=== PATIENT | female | born 1950 | race Caucasian/White ===

== ENCOUNTER 2019-01-09 04:47 | Inpatient (IN) ==
[2019-01-02 12:48] LABS: Appearance,Urine CLEAR; Bacteria,Urine 0 /hpf (0); Bilirubin,Urine NEG (NEG); Color,Urine YELLOW; Glucose,Urine (UA) NEGATIVE (NEG); Leukocyte Esterase,Urine 500 /uL (NEG); Mucus,Urine MANY /hpf (0); Protein,Urine NEG (NEG); Specific Gravity,Urine 1.021 (1.000-1.035); Urine Blood NEG mg/dL (<0.03); Urine Hyaline Cast 1 /lpf (0-2); Urine RBC 2 /hpf (0-1); Urine Squamous Epithelial Cell 2 /hpf (0-4); Urine WBC 39 /hpf (0-4); Urobilinogen,Urine NEG (NEG)
[2019-01-02 13:19] LABS: Basophils # (Auto) 0 K/mcL (0.0-0.3); Basophils % (Auto) 0.3 % (0.0-2.0); Eosinophils # (Auto) 0.1 K/mcL (0.0-0.7); Eosinophils % (Auto) 2.4 % (0.0-7.0); Granulocytes % (Auto) 69.5 % (38.0-78.0); Lymphocytes # (Auto) 1.3 K/mcL (1.5-4.8); Lymphocytes % (Auto) 22.2 % (15.5-49.0); Mean Cell Volume 91.1 fL (80.0-100.0); Mean Corpuscular HGB Conc 32.9 g/dL (31.0-36.0); Monocytes # (Auto) 0.3 K/mcL (0.1-0.9); Monocytes % (Auto) 5.6 % (1.0-12.0); Platelet Count 255 K/mcL (140-440); RBC 3.97 M/mcL (4.00-5.20); Red Cell Distribution Width 13.3 % (11.5-14.5)
[2019-01-02 13:28] LABS: Blood Urea Nitrogen 13 mg/dl (8-23)
[2019-01-02 13:48] LABS: Estimated Average Glucose(eAG) 183 mg/dL
[2019-01-09] MEDS ORDERED: CELECOXIB 200 MG CAPSULE PO SCH (06:00)
[2019-01-09] MEDS ORDERED: oxyCODONE 10 MG TAB.ER.12H PO SCH (06:00)
[2019-01-09] MEDS ORDERED: PREGABALIN 75 MG CAPSULE PO SCH (06:00)
[2019-01-09 06:39] LABS: Appearance,Urine HAZY; Bacteria,Urine 0 /hpf (0); Bilirubin,Urine NEG (NEG); Color,Urine YELLOW; Glucose,Urine (UA) NEGATIVE (NEG); Leukocyte Esterase,Urine NEG /uL (NEG); Mucus,Urine MANY /hpf (0); Protein,Urine NEG (NEG); Specific Gravity,Urine 1.029 (1.000-1.035); Urine Amorphous Crystals FEW /hpf (0); Urine Blood 0.03 mg/dL (<0.03); Urine RBC 11 /hpf (0-1); Urine Squamous Epithelial Cell < 1 /hpf (0-4); Urine Transitional Epi Cells < 1 /hpf (0-2); Urine WBC 1 /hpf (0-4)
[2019-01-09] MEDS ORDERED: VANCOMYCIN 1,500 MG in 0.9 % SODIUM CHLORIDE 500 ML IV SCH (07:00)
[2019-01-09] MEDS ORDERED: PROPOFOL 200 MG/20 ML VIAL IV ONE (07:45)
[2019-01-09] MEDS ORDERED: LIDOCAINE HCL/PF 100 MG/5 ML SYRINGE IV ONE (07:45)
[2019-01-09] MEDS ORDERED: ePHEDrine 50 MG/ML AMPUL IV ONE (07:45)
[2019-01-09] MEDS ORDERED: ONDANSETRON 4 MG/2 ML VIAL IV ONE (07:45)
[2019-01-09] MEDS ORDERED: TRANEXAMIC ACID 1,000 MG/10 ML VIAL IV ONE ×2 (07:45→09:23)
[2019-01-09] MEDS ORDERED: SUCCINYLCHOLINE 20 MG/ML ML IV ONE (07:45)
[2019-01-09] MEDS ORDERED: MIDAZOLAM 5 MG/5 ML VIAL IV ONE (07:45)
[2019-01-09] MEDS ORDERED: DEXAMETHASONE 4 MG/ML VIAL IV ONE (07:45)
[2019-01-09] MEDS ORDERED: PHENYLEPHRINE 10 MG/ML VIAL IV ONE (07:45)
[2019-01-09] MEDS ORDERED: fentaNYL 100 MCG/2 ML VIAL IV ONE (07:45)
[2019-01-09] MEDS ORDERED: ESMOLOL 100 MG/10 ML VIAL IV ONE (07:45)
[2019-01-09] MEDS ORDERED: HEPARIN 5,000 UNIT/ML VIAL SQ ONE ×2 (08:47)
[2019-01-09] MEDS ORDERED: MAGNESIUM HYDROXIDE 30 ML ORAL.SUSP PO PRN (09:23)
[2019-01-09] MEDS ORDERED: FLEETS ADULT ENEMA PR PRN (09:23)
[2019-01-09] MEDS ORDERED: BISACODYL 10 MG SUPP.RECT PR PRN (09:23)
[2019-01-09] MEDS ORDERED: DEXTROSE 31 GM ORAL.SUSP PO PRN (09:23)
[2019-01-09] MEDS ORDERED: POLYETHYLENE GLYCOL 3350 17 GM PACKET PO PRN (09:23)
[2019-01-09] MEDS ORDERED: DEXTROSE 50% 50 ML VIAL IV PRN (09:23)
[2019-01-09] MEDS ORDERED: BENZOCAINE/MENTHOL 1 LOZENGE PO PRN (09:23)
--- NOTE | 2019-01-09 09:23 | Brief Operative Note ---
Date of procedure: 01/09/19 Pre-op diagnosis: R hip severe DJD Post-op diagnosis: same Procedure: Right anterior total hip arthroplasty Grafts/Implants: Yes (Depuy Actis 4 std, +5 36 delta head, 54 cup, neutral altrx liner) Anesthesia: spinal, GLMA Findings: severe arthritis Complications: none Surgeon: Gonzalo Diamond Gas Burner Operator: William Park Estimated blood loss (cc): 250 Specimens Removed/Pathology: none sent Condition: stable Disposition: PACU
[2019-01-09] MEDS ORDERED: LIDOCAINE PRILOCAINE TOPICAL PRN (09:28)
[2019-01-09] MEDS ORDERED: ceFAZolin 1 GM VIAL IV SCH (09:30)
[2019-01-09] MEDS ORDERED: ACETAMINOPHEN 120 MG SUPP.RECT PR ONE (09:47)
[2019-01-09] MEDS ORDERED: ONDANSETRON 4 MG/2 ML VIAL IV PRN (09:47)
[2019-01-09] MEDS ORDERED: NALOXONE HCL 0.4 MG/ML VIAL IV PRN (09:47)
[2019-01-09] MEDS ORDERED: diphenhydrAMINE 50 MG/ML VIAL IV PRN (09:47)
[2019-01-09] MEDS ORDERED: ATROPINE SULFATE 0.4 MG/ML VIAL IV PRN (09:47)
[2019-01-09] MEDS ORDERED: METHOCARBAMOL 1,000 MG/10 ML VIAL IV PRN (09:47)
[2019-01-09] MEDS ORDERED: MEPERIDINE 25 MG/ML SYRINGE IV PRN (09:47)
[2019-01-09] MEDS ORDERED: ePHEDrine 50 MG/ML AMPUL IV PRN (09:47)
[2019-01-09] MEDS ORDERED: HYDROmorphone 2 MG/ML VIAL IV PRN (09:47)
[2019-01-09] MEDS ORDERED: METOPROLOL TARTRATE 5 MG/5 ML VIAL IV PRN (09:47)
[2019-01-09] MEDS ORDERED: IPRATROPIUM/ALBUTEROL 3 ML AMPUL.NEB NEB PRN (09:47)
[2019-01-09] MEDS ORDERED: fentaNYL 100 MCG/2 ML VIAL IV PRN (09:47)
[2019-01-09] MEDS ORDERED: FLUMAZENIL 0.1 MG/ML ML IV PRN (09:47)
[2019-01-09] MEDS ORDERED: LACTATED RINGERS 1,000 ML IV SCH (10:00)
--- NOTE | 2019-01-09 10:09 | Operative Note ---
DATE OF OPERATION: 01/09/2019 PREOPERATIVE DIAGNOSIS: Right hip severe osteoarthritis. POSTOPERATIVE DIAGNOSIS: Right hip severe osteoarthritis. PROCEDURE PERFORMED: Right anterior total hip arthroplasty placing a DePuy Actis size 4 standard offset femoral stem; a +5, 36 mm delta ceramic head ball with a 54 Sayre cup and a neutral Altrx liner. SURGEON: Gonzalo Diamond M.D. JUNIOR LINUX SYSTEMS ADMINISTRATOR: Malik Park PA-C. ANESTHESIA: Spinal plus general. DRAINS: None. SPECIMENS: Femoral head which was discarded. BLOOD LOSS: 250 mL. COMPLICATIONS: None. POSTOPERATIVE CONDITION: Stable. INDICATIONS FOR SURGERY: This is a 68-year-old female who has had longstanding progressive worsening right hip pain. Radiographs showed severe ipts-ih-qvel osteoarthritis. FINDINGS AT SURGERY: Severe arthritis. Post implantation showed good component position with leg length and offset relatively equal. PROCEDURE IN DETAIL: The patient had been seen preoperatively. Informed consent had been obtained after discussion of risks and benefits of surgery. Risks including, but not limited to, bleeding, possibly requiring transfusion; infection, possibly requiring implant removal and prolonged IV antibiotics, this being increased with her diabetes and obesity; injury to nerves, blood vessels, other surrounding structures; anesthetic risks; incomplete or no resolution of symptoms; dislocation; fracture; DVT and pulmonary embolus risks; and the possibility of needing further revision joint surgery. She understood and wished to proceed. Correct operative site was marked. The patient was taken to the operating room after spinal anesthesia was given. She was then given LMA general and then transferred onto the fracture table, and the right hip and groin were carefully prepped and draped in normal sterile fashion. She did have some yeast under her pannus, so we did make sure our incision was lateral to the yeast and Ioban was used to cover all skin surfaces. Scalpel was used through skin and subcutaneous tissue. Hemostasis was obtained with Bovie cautery. We continued down with Bovie through the subcutaneous fat which was quite deep. Once down on tensor fascia, we undermined circumferentially. Irrisept was irrigated and then a ring retractor was placed. Tensor fascia was incised in line with the muscle fibers and then we carefully bluntly dissected medial to the muscle belly. Blunt cobra retractors were placed on the superior and inferior neck and then circumflex vessels were identified, coagulated and cut. Vastus fascia was split distally. We then performed an anterior capsulectomy with capsule releases out towards the trochanter. We then placed a corkscrew in the femoral head. Traction was also placed on the leg. Osteotome was used under fluoro to identify our neck cut trajectory and then oscillating tip saw was used to make our neck cut. The femoral head was removed and then the acetabulum was exposed. What remained of labrum was removed circumferentially, as well as soft tissue from the floor. A reamer was used under fluoro to ream directly medial to the tear drop and then we increased reamer size and angle. She did have some dysplasia which made getting some rim ream difficult. We went up to a size 54 and still did not have rim ream, so I ended up medializing and going slightly proximal with the reamer to get some good rim ream. We then opened a 54 three-hole Sayre cup. The acetabulum was irrigated with Irrisept, after a minute we copiously pulse lavaged with saline. We then impacted the cup at about 40 degrees of inclination and 25 to 30 degrees of anteversion. This was done with the [id number]. We did get good press-fit, so we went ahead and placed a center hole cover. A neutral Altrx liner was opened, carefully aligned, and impacted. We then carefully verified all tabs were seated and then traction was removed from the leg. It was externally rotated. We released around the medial neck and posterior along the proximal femur and then leg was extended and adducted with traction released. We used Bovie to release out to the greater trochanter. Exposure at this point was very difficult due to her morbid obesity. Eventually, we were able to get adequate proximal femoral exposure to prepare the proximal femur, starting with a box osteotome. Her bone was very soft. We went to an awl to identify the canal trajectory and then a rongeur and rasp to lateralize. We then sequentially broached up to a size 4. This sat a little above our neck cut. A 3 had been rotationally unstable. We then trialed a +1.5 head ball with a standard neck trial. The hip was reduced without excessive tension. The AP pelvis was taken to verify neutral rotation and AP of the nonoperative and operative hips were overlaid. Leg lengths appeared fairly symmetrical. We then redislocated and removed the trial. We irrigated the canal with Irrisept. A size 4 standard offset Actis stem was opened. After a minute we pulse lavaged with saline down the femoral canal and then the stem was impacted. The stem seemed to seat a little below where the trial did, so I chose a +5 head ball. The stem was carefully cleaned and dried, and the head ball was briskly impacted. The hip was reduced without excessive tension. Final x-ray was taken which showed good component position and only mild limb lengthening. We irrigated with Irrisept, after a minute we copiously pulse lavaged with saline. We then closed tensor fascia with two running #1 Vicryl stitches. Ring retractor was removed and Irrisept was irrigated again. The deep subcutaneous fat was closed with Vicryl and then 2-0 Monocryl for subcutaneous and cuauhtemoc for skin. We then used Dermabond adhesive dressing over this. We then had the patient awakened, extubated, and transferred to recovery in stable condition. BJStarr:[email or web address] Job ID: [id number] Doc ID: [id number] Gonzalo Diamond MD
--- NOTE | 2019-01-09 10:16 | XRay Report ---
CLINICAL INFORMATION: Post-op Total Hip COMPARISON: Preoperative films 10/11/2017 FINDINGS: Right total hip prosthesis is in anatomic alignment. No osseous abnormalities. Soft tissue swelling over the surgical site. IMPRESSION: Negative Interpreted and Authenticated by: Raoul Rodriguez 01/09/19
[2019-01-09] MEDS: ONDANSETRON 4 MG/2 ML VIAL IV PRN (10:37)
[2019-01-09] MEDS: INSULIN LISPRO 1 UNIT/0.01 ML UNIT SQ SCH ×3 (13:24→20:30)
[2019-01-09] MEDS: 0.9 % SODIUM CHLORIDE 10 ML SYRINGE IV SCH ×2 (13:44→20:35)
[2019-01-09] MEDS: 0.9 % SODIUM CHLORIDE 1,000 ML IV SCH ×2 (13:49→20:33)
[2019-01-09] MEDS: HYDROcodone/APAP 10/325MG TABLET PO PRN ×2 (17:51→23:29)
--- NOTE | 2019-01-09 18:27 | XRay Report ---
CLINICAL INFORMATION: right hip arthroplasty COMPARISON: None. FINDINGS: Multiple digital images from the OR submitted. Final image shows right total hip prosthesis in anatomic alignment.. Soft tissue swelling seen in the expected. No osseous abnormality. IMPRESSION: Negative Interpreted and Authenticated by: Raoul Rodriguez 01/09/19
[2019-01-09] MEDS ORDERED: VANCOMYCIN 1,500 MG in 0.9 % SODIUM CHLORIDE 500 ML IV ONE (19:00)
[2019-01-09] MEDS: DOCUSATE SODIUM 100 MG CAPSULE PO SCH (20:31)
[2019-01-09] MEDS: SENNOSIDES 1 TABLET PO SCH (20:31)
[2019-01-09] MEDS: ASPIRIN 325 MG ENTERIC COATED TABLET PO SCH (20:31)
[2019-01-10] MEDS: 0.9 % SODIUM CHLORIDE 1,000 ML IV SCH ×3 (01:08→15:32)
[2019-01-10] MEDS: HYDROcodone/APAP 10/325MG TABLET PO PRN ×6 (03:40→23:47)
[2019-01-10] MEDS: 0.9 % SODIUM CHLORIDE 10 ML SYRINGE IV SCH ×3 (05:33→20:05)
--- NOTE | 2019-01-10 08:20 | Discharge Summary ---
Providers - Providers Patient information: Note initiated : 01/10/19 at 8:18 am Service Date, if different from initiated Date: [] Patient: Miriam Black 68 y/o F admitted on 01/09/19 for Right Total Hip Arthroplasty. Chief Complaint: [] Date of admission: 01/09/19 Discharge date: 01/11/19 Attending physician: Gonzalo Diamond Hospitalization Hospital course: admitted for postop pain control and PT. Discharge diagnosis: s/p R total hip arthroplasty Procedures: Right total hip arthroplasty 01/09/19 Exam - Exam Clean and dry: Yes Weight bearing status: as tolerated Ortho Discharge - MONE - Patient Instructions Diet: Consistent Carbohydrate Activity: weight bearing as tolerated Total Hip Protocol: Follow activity instructions as provided by Physical Therapy. Dressing Care: May shower in 2 days Patient Education: Total Hip Replacement (DC) Additional Instructions: Discharge Instructions: Do the exercises at home that physical therapy gave you throughout the day. Weight bearing as tolerated. Wear comfortable clothing for physical therapy. Take your prescription, photo ID, insurance cards, and current medication list with you to your first physical therapy appointment. Take your prescription to sheepskin pickler any medication or equipment (such as walker, crutches, toilet riser or C.P.M.) If you have the Aquacel Ag dressing, leave in place for 7 days then remove. If dressing becomes soiled (turns black), remove and use gauze 4x4 dressing and silvasorb ointment and change daily. Keep incision clean and dry. If you have Dermabond (a dressing with a mesh-like appearance), DO NOT remove mesh. Cover site daily with gauze dressing. You may start showering on post op day #2. The Dermabond dressing can get wet, do not scrub dressing. Pat dry, then place new dressing (above). To avoid constipation while taking any narcotic pain medication, take an over the counter stool softener/laxative. Use ice packs as directed, on for 20 minutes at a time throughout the day. This and elevation will help with pain and swelling. Call your physician for fevers above 100.5 or pain not controlled by medication. Your prescriptions are with your discharge information. Some medications were electronically transmitted to your pharmacy of choice. Take Aspirin twice daily, for 30 days, as prescribed to prevent blood clots (see medication list). - Follow Up Plan Follow Up Appointments: William Park PA-C [Physician Wardrobe Specialty Worker] - Disposition: Xfer SNF Prognosis: Fair Rehab Potential: Fair I certify that the patient requires SNF services: Yes - Orders For Discharge Additional Discharge Orders: Physical Therapy at Discharge - MONE Location: None Selected Toilet Riser Discharge Order Location: None Selected Walker Location: None Selected Pending Studies Resuscitation Status Full Code Diet Consistent Carbohydrate Diet Start MonJan 09 925 Hydrocodone Bitart/Acetaminophen ([place] 10/325mg) 0 tab PO Q4HP PRN PRN Reason: PAIN LEVEL 3-6 Last Admin: 01/10/19 07:54 Dose: 1 tab Documented by: Admin: 01/10/19 03:40 Dose: 1 tab Documented by: Admin: 01/09/19 23:29 Dose: 1 tab Documented by: Admin: 01/09/19 17:51 Dose: 1 tab Documented by: SALOME Aspirin (Ecotrin) 325 mg PO BID [facility] Last Admin: 01/09/19 20:31 Dose: 325 mg Documented by: BERTO Diagnostic Test (Pha) (Accu-Chek) 1 each FS ACHS [facility] Last Admin: 01/10/19 07:51 Dose: 1 each Documented by: Admin: 01/09/19 20:29 Dose: 1 each Documented by: Admin: 01/09/19 17:06 Dose: 1 each Documented by: Admin: 01/09/19 11:43 Dose: 1 each Documented by: LAWSON Docusate Sodium (Colace) 100 mg PO BID [facility] Last Admin: 01/09/19 20:31 Dose: 100 mg Documented by: BERTO Sodium Chloride (Sodium Chloride 0.9%) 1,000 mls @ 100 mls/hr IV .Q10H [facility] Last Admin: 01/10/19 05:32 Dose: Not Given Documented by: Admin: 01/10/19 01:08 Dose: 100 mls/hr Documented by: Infusion: 01/09/19 23:49 Dose: 100 mls/hr Documented by: Admin: 01/09/19 20:33 Dose: Not Given Documented by: Admin: 01/09/19 13:49 Dose: 100 mls/hr Documented by: SALOME Insulin Human Lispro (Humalog) 0 unit SQ ACHS [facility]; Protocol Last Admin: 01/09/19 20:30 Dose: 3 units Documented by: Admin: 01/09/19 17:12 Dose: 9 units Documented by: Admin: 01/09/19 13:24 Dose: Not Given Documented by: SALOME Morphine Sulfate (Morphine) 0 mg IV Q1HP PRN PRN Reason: PAIN LEVEL > 6 Last Admin: 01/09/19 15:20 Dose: 2 mg Documented by: Admin: 01/09/19 11:33 Dose: 4 mg Documented by: LAWSON Ondansetron HCl (Zofran) 4 mg IV Q4HP PRN PRN Reason: Nausea And Vomiting Last Admin: 01/09/19 10:37 Dose: 4 mg Documented by: SALOME Senna (Senokot) 2 tab PO HS [facility] Last Admin: 01/09/19 20:31 Dose: 2 tab Documented by: BERTO Sodium Chloride (Saline Flush) 10 ml IV Q8 [facility] Last Admin: 01/10/19 05:33 Dose: Not Given Documented by: Admin: 01/09/19 20:35 Dose: Not Given Documented by: Admin: 01/09/19 13:44 Dose: Not Given Documented by: SALOME Shift Summary 01/10/19 05:06 Shift Summary by Ino Pompa Pt rested fairly well tonight. RT hip pain well controlled w/ PO [place] 10 (1) Q 4hr - last dose given @ 0340. She has declined need for Ice pack to hip. She started the shift w/ nausea - which has resolved - no further nausea. Pt is voiding QS while up to BSC - TX's slow & stable w/ FWW & SBA. She has also been out AMB in [place] x1 for a rather short distance. NS infusing to her RT F/A @ 100ml/hr. RT hip dressing - C,D,I. VS - WNL on R.A.. She is A&O x4, calm, pleasant, & cooperative. Initialized on 01/10/19 05:06 - END OF NOTE
[2019-01-10] MEDS: CYANOCOBALAMIN (VITAMIN B-12) 500 MCG TABLET PO SCH (08:29)
[2019-01-10] MEDS: VITAMIN D3 1,000 UNIT TABLET PO SCH (08:30)
[2019-01-10] MEDS: ASPIRIN 325 MG ENTERIC COATED TABLET PO SCH ×2 (08:31→20:06)
[2019-01-10] MEDS: LISINOPRIL 5 MG TABLET PO SCH (08:31)
[2019-01-10] MEDS: FLUCONAZOLE 100 MG TABLET PO SCH (08:31)
[2019-01-10] MEDS: Anastrozole [Arimidex] 1 mg Tab PO SCH (08:32)
[2019-01-10] MEDS: DOCUSATE SODIUM 100 MG CAPSULE PO SCH ×2 (08:32→20:06)
[2019-01-10] MEDS: INSULIN LISPRO 1 UNIT/0.01 ML UNIT SQ SCH ×4 (08:32→20:05)
[2019-01-10] MEDS: LEVOTHYROXINE 100 MCG TABLET PO SCH (08:32)
[2019-01-10] MEDS: ONDANSETRON 4 MG/2 ML VIAL IV PRN (09:12)
[2019-01-10] MEDS: SENNOSIDES 1 TABLET PO SCH (20:06)
--- NOTE | 2019-01-10 22:21 | Orthopedic Progress Note ---
Subjective Patient information: Note initiated : 01/10/19 at 10:18 pm Service Date, if different from initiated Date: [01/10/19819] Patient: Miriam Black 68 y/o F admitted on 01/09/19 for Right Total Hip Arthroplasty. Chief Complaint: [] Principal diagnosis: s/p R total hip Interval history: having pain but reasonably controlled Objective Vital signs: Vital Signs Temp Pulse Resp BP Pulse Ox 01/10/19 20:00 99.1 F H 88 16 136/68 96 01/10/19 16:00 97.6 F 87 16 143/65 93 01/10/19 12:00 97.6 F 87 14 143/65 93 01/10/19 08:00 90 01/10/19 07:57 97.4 F 90 14 139/67 93 01/10/19 03:36 98.8 F 108 H 14 139/69 95 01/09/19 23:12 98.7 F 104 H 14 155/76 95 Intake and Output 01/10/19 01/10/19 01/11/19 13:59 21:59 05:59 Intake Total 1600 Output Total 300 451 Balance 1300 -451 Intake: IV 1000 Sodium Chloride 0.9% 1,000 ml @ 1000 100 mls/hr IV .Q10H MANJU Rx#: [id number] Oral 600 Output: Void Amount 300 300 # of times incontinent of urine 1 Estimated Blood Loss 150 Other: Meal Breakfast Percent of Meal Consumed 100% Feeding Ability Independent Urine Appearance Clear Clear Urine Color Bright Yellow Bright Yellow Urine Odor Normal # Voids 1 Weight 212 lb 8 oz Patient Weight 01/11/19 05:59 Weight 212 lb 8 oz Intake & Output: Intake & Output 01/10/19 01/10/19 01/11/19 13:59 21:59 05:59 Intake Total 1600 Output Total 300 451 Balance 1300 -451 Weight 212 lb 8 oz Intake: IV 1000 Sodium Chloride 0.9% 1,000 ml @ 1000 100 mls/hr IV .Q10H MANJU Rx#: [id number] Oral 600 Output: Void Amount 300 300 # of times incontinent of urine 1 Estimated Blood Loss 150 Other: Meal Breakfast Percent of Meal Consumed 100% Feeding Ability Independent Urine Appearance Clear Clear Urine Color Bright Yellow Bright Yellow Urine Odor Normal # Voids 1 Neurological exam IM: Yes alert, Yes oriented X3, Yes neurovascular intact - Labs CBC & BMP: 01/10/19 05:11 01/02/19 10:38 Labs: 01/10/19 01/02/19 05:11 10:38 Hgb 9.6 L 11.9 L Hct 29.1 L 36.2 Assessment and Plan (1) Status post total hip replacement, right POD#1-pain but tolerable -PT, pain control -d/c plan to snf possibly tomorrow Status: Acute
[2019-01-11] MEDS: 0.9 % SODIUM CHLORIDE 10 ML SYRINGE IV SCH (06:05)
[2019-01-11] MEDS: HYDROcodone/APAP 10/325MG TABLET PO PRN ×2 (07:27→13:45)
[2019-01-11] MEDS: LEVOTHYROXINE 100 MCG TABLET PO SCH (07:27)
--- NOTE | 2019-01-11 07:44 | Orthopedic Progress Note ---
Orthopedics - Auxillary Note - Subjective Patient Information: Note initiated : 01/11/19 at 7:42 am Service Date, if different from initiated Date: [] Patient: Miriam Black 68 y/o F admitted on 01/09/19 for Right Total Hip Arthroplasty. Chief Complaint: mild R hip and knee pain. bandages c/d/i nvi-distal Vital Signs Temp Pulse Resp BP Pulse Ox 01/11/19 06:46 97.9 F 18 113/73 95 01/11/19 03:53 97.9 F 106 H 18 107/54 94 01/11/19 00:00 98.6 F 98 H 18 122/63 96 01/10/19 20:00 99.1 F H 88 16 136/68 96 01/10/19 16:00 97.6 F 87 16 143/65 93 01/10/19 12:00 97.6 F 87 14 143/65 93 01/10/19 08:00 90 01/10/19 07:57 97.4 F 90 14 139/67 93 Intake and Output 01/10/19 01/11/19 01/11/19 21:59 05:59 13:59 Intake Total 1050 Output Total 451 Balance -451 1050 Intake: Oral 1050 Output: Void Amount 300 # of times incontinent of urine 1 Estimated Blood Loss 150 Other: Meal Dinner Percent of Meal Consumed 25% Feeding Ability Independent Urine Appearance Clear Clear Urine Color Pale Pale Urine Odor Normal Normal # Voids 1 1 1 Weight 212 lb 8 oz Laboratory Results - last 24 hr 01/11/19 04:48 Hgb 9.2 L Hct 28.3 L 2 days s/p R direct anterior MONE-stable mobilize with PT cont with pannus skin care tentative discharge to SNF today.
[2019-01-11] MEDS: INSULIN LISPRO 1 UNIT/0.01 ML UNIT SQ SCH ×2 (08:10→11:46)
[2019-01-11] MEDS: ASPIRIN 325 MG ENTERIC COATED TABLET PO SCH (09:15)
[2019-01-11] MEDS: CYANOCOBALAMIN (VITAMIN B-12) 500 MCG TABLET PO SCH (09:15)
[2019-01-11] MEDS: LISINOPRIL 5 MG TABLET PO SCH (09:15)
[2019-01-11] MEDS: FLUCONAZOLE 100 MG TABLET PO SCH (09:15)
[2019-01-11] MEDS: VITAMIN D3 1,000 UNIT TABLET PO SCH (09:15)
[2019-01-11] MEDS: DOCUSATE SODIUM 100 MG CAPSULE PO SCH (09:15)
[2019-01-11] MEDS: Anastrozole [Arimidex] 1 mg Tab PO SCH (09:15)
== END 2019-01-11 14:05 | DRG 470 ==
LOC: MEDSUR 04:47
PROVIDERS: ADMIT Orthopaedic Surgery; ATTEND Orthopaedic Surgery